=== PATIENT | male | born 1950 | race Caucasian/White ===

== ENCOUNTER → 2016-11-21 | Outpatient (CLI) | payer MEDICARE, OTHER ==
--- NOTE | 2016-11-21 11:28 | REP ---
DUPLEX CAROTID SONOGRAPHY: HISTORY: Carotid stenosis. COMPARISON: Carotid angiography from December 2011 was read as showing 30% right internal carotid artery narrowing and 50% left internal carotid artery narrowing. FINDINGS: Antegrade flow is observed in both vertebral arteries. RIGHT CAROTID: The right common carotid artery shows soft plaquing and intimal thickening. Moderate mixed plaquing is seen in the bulb and proximal ICA on the right side on two-dimensional scanning. Flow velocities by Doppler are elevated in the proximal ICA and to an even greater extent of the proximal ECA. Velocity Chart Right Carotid: PSV EDV Right CCA 91 cm/s Right ICA 179 cm/s 49 cm/s Right ECA 271 cm/s Right ICA/CCA ratio elevated 2.0. IMPRESSION: 50-79% category narrowing in the right ICA by Doppler velocity criteria. LEFT CAROTID: Left common carotid artery shows some mixed plaquing. Moderate mixed plaquing is seen in the bulb, proximal ICA and proximal ECA on two-dimensional scanning. Color flow and spectral Doppler interrogation demonstrate elevated systolic velocities in the proximal ICA and proximal ECA on the left side. Velocity Chart Left Carotid: PSV EDV Left CCA 97 cm/s Left ICA 167 cm/s 47 cm/s Left ECA 314 cm/s Left ICA/CCA ratio somewhat elevated 1.7. IMPRESSION: 50-79% category narrowing in the left ICA by Doppler velocity criteria. Signed by Mp Camargo MD 11/21/2016 03:51 P
--- NOTE | 2016-11-26 17:07 | REP ---
Clinical: Abdominal aortic aneurysm. Technique: Real time davis scale and color Doppler evaluation using curved array transducer. Findings: Evaluation of the aorta is limited due to interposed bowel gas and visualized portions demonstrate diffuse atheromatous plaquing. The proximal aorta just below the diaphragm and above the level of the main renal arteries measures 2.7 cm diameter. The mid aorta below the level of the renal arteries measures 4.9 x 5.6 cm and increases to the distal aorta above the level of the bifurcation which measures 5.8 x 5.0 cm. A stent is identified extending into the right common iliac artery. Abdominal aortic aneurysm measures approximately 9.4 cm in length and its relationship to the renal arteries cannot be evaluated due to interposed bowel gas and terminates just above the bifurcation to common iliac arteries. The right common iliac artery measures 1.2 cm diameter while the left common iliac artery measures 1.1 cm diameter. Doppler interrogation demonstrates a biphasic wave pattern through the right external iliac artery with PSV at 122 cm/sec and a triphasic wave pattern through the right common femoral artery with a PSV at 144 cm/sec. Doppler interrogation demonstrates a biphasic wave pattern through the left external iliac artery with PSV at 139 cm/sec and biphasic wave pattern through the left common femoral artery with a PSV at 140 cm/sec. Impression: Abdominal aortic aneurysm incompletely evaluated due to interposed bowel gas measuring roughly 9.4 cm in craniocaudal length and 5.8 x 5.0 cm maximal diameter tapering to the bifurcation. Signed by Abdi Leon MD 11/26/2016 04:59 P
== END ==
LOC: M RAD 08:42
PROVIDERS: ATTEND Surgery
DX: I71.4 Abdominal aortic aneurysm, without rupture (principal); I65.23 Occlusion and stenosis of bilateral carotid arteries

== ENCOUNTER → 2018-03-19 | Outpatient (CLI) | payer MEDICARE, OTHER ==
--- NOTE | 2018-03-19 10:43 | REP ---
CT ABDOMEN AND PELVIS WITHOUT IV OR ORAL CONTRAST: HISTORY: Abdominal aortic aneurysm without rupture. COMPARISON STUDY: January 05, 2017. CT FINDINGS: In the interval since the January 05, 2017 prior study, the patient has undergone aortobiiliac stent graft placement. The abdominal aortic aneurysm measures 5.1 cm in greatest anteroposterior dimension, previously 5.5 cm. No dawn-aneurysmal disease is seen. There is a suprarenal stent graft component as well with a ring of increased attenuation graft material at the junction between the suprarenal and the infrarenal stent graft components. There is left colonic diverticulosis. There is a tiny calcific density in the dependent portion the gallbladder consistent with cholelithiasis. No other significant abnormality is seen. IMPRESSION: Status post aortobiiliac stent graft repair for abdominal aortic aneurysm. The [place] aorta has decreased slightly in caliber since the pre-procedure study. Electronically Signed by Mp Camargo MD 03/19/2018 10:59 A
--- NOTE | 2018-03-19 13:36 | REP ---
Abdominal aortic sonography: History: Abdominal aortic aneurysm without rupture. Comparison CT study March 19, 2018 and January 05, 2017. Findings: The abdominal aorta measures 2.4 cm in AP by 2.6 cm transverse proximally at the level of the diaphragmatic hiatus. At the level of main renal artery origins. There is bowel gas obscuring the abdominal aorta. At mid aortic level the dimensions are 3.0 x 3.9 cm in AP by transverse dimension respectively. The aortic aneurysm measures 4.8 x 4.5 cm in AP by transverse dimension today. Previous dimensions were 5.8 x 5.0 cm. The right and left common iliac arteries are 1.1 and 1.5 cm in AP dimension respectively. 8.6 cm length of aorta is aneurysmally dilated. The patient is status post aortobiiliac stent graft repair. Doppler flow velocity in the abdominal aorta, 77 cm/sec and that in the right common iliac artery is 67 cm/sec. Flow velocity in the left common iliac artery is 77 cm. Impression: Aortobiiliac stent graft repair of abdominal aortic aneurysm. AP dimension of the abdominal aortic aneurysm is decreased somewhat to 4.8 cm. Electronically Signed by Mp Camargo MD 03/19/2018 07:27 P
== END ==
LOC: M RAD 08:33
PROVIDERS: ATTEND Surgery
DX: I71.4 Abdominal aortic aneurysm, without rupture (principal)

== ENCOUNTER → 2018-06-29 | Outpatient (CLI) | payer MEDICARE, OTHER ==
--- NOTE | 2018-07-03 10:37 | SLEEPCENT ---
DATE OF PROCEDURE: 06/29/2018 ORDERING PROVIDER: Dr. Gilmore Nocturnal polysomnography was performed for evaluation of sleep physiology in this patient with history of excessive somnolence and nonrestorative sleep who has comorbidities of hypertension, coronary artery disease, as well as acid reflux disease. 8 hours and 20 minutes of data were reviewed. There were 437 minutes of sleep identified. Sleep latency was mildly prolonged at 18 minutes. Rapid eye movement (REM) latency more so prolonged at 281 minutes. Sleep architecture showed poor progression. Three REM cycles were noted late in the study. Overall sleep efficiency was 88.6%. The electrocardiogram showed a sinus rhythm with an average heart rate 55 beats per minute. Electroencephalogram (EEG) showed normal waveforms for awake and sleep. There were 333 respiratory events identified of 10 seconds in duration or greater for an apnea-hypopnea index of 45.7. The events were both central and obstructive. 156 of these 333 events were mixed and central. Events were not exclusive to sleep stage nor body posture. Arousals from respiratory events occurred 29.1 times per hour, and oxygen desaturations were seen in the low 80s. There was minimal limb activity. Limb movement arousal index was borderline at 5.4. IMPRESSION: Complex obstructive sleep apnea syndrome (G47.31, G4 7.33). Apnea-hypopnea index 45.7. RECOMMENDATIONS: The patient should be encouraged to return to the sleep disorder center at his earliest convenience for pressure therapy. Given the occurrence of central and mixed apneas, use of bilevel device and backup rate may be necessary.
== END ==
LOC: M SLEEP 19:20
PROVIDERS: ATTEND Internal Medicine Pulmonary Disease
DX: G47.33 Obstructive sleep apnea (adult) (pediatric) (principal)

== ENCOUNTER → 2018-07-23 | Outpatient (CLI) | payer MEDICARE, OTHER ==
--- NOTE | 2018-07-25 09:13 | SLEEPCENT ---
DATE OF PROCEDURE: 07/23/2018 ORDERED BY: Dr. Gilmore Nocturnal polysomnography was performed for the titration of pressure therapy in this patient with complex obstructive sleep apnea syndrome and apnea-hypopnea index of 45.7. For testing, the patient was fit with a [employer] Quattro full face mask of small size and 4 cm of water pressure were applied to the circuit and the lights were extinguished. 7 hours and 29 minutes of data were reviewed. There were 384 minutes of sleep identified. Sleep latency was normal at 11 minutes. The patient did not achieve rapid eye movement (REM) sleep. Sleep architecture remained fragmented with poor progression. Overall sleep efficiency was 86.5%. The patient's electrocardiogram showed small complexes. There appeared to be a sinus rhythm with an average heart rate of 50 beats per minute. Electroencephalogram (EEG) showed coarsening in background and otherwise normal waveforms for awake and sleep. Persistence of respiratory events prompted an increase in C-PAP pressure and despite optimal mask fit and minimal air leak the patient required a change to a bilevel device. Progressive pressure increases were performed. However, an optimal pressure is difficult to identify on this testing. There was some emergence of central apnea, prompting a backup rate. Best sleep appears to have occurred at a bilevel pressure therapy inspiratory 16 over expiratory of 12, though there were persistence of some respiratory events that were for the most part hypopneic and not associated with severe oxygen desaturation below 93%. Additionally, limb activity was marked in the EMG channels. The patient's limb movement arousal index was up from the diagnostic night at 11.6. IMPRESSION: 1. Complex obstructive sleep apnea syndrome (G47.31, G47.33). 2. Possible periodic limb movement disorder. RECOMMENDATIONS: Though this was an incomplete titration, best sleep was seen on a bilevel device with inspiratory 16 over expiratory of 12 and institution of this pressure therapy should at least improve the quality of the patient's sleep. If symptoms persist, a full night retitration on bilevel therapy and possibly the addition of a backup free to address central events may be necessary. Pending optimal pressure therapy, interventions to reduce the frequency of arousals from limb activity may also be helpful.
== END ==
LOC: M SLEEP 19:14
PROVIDERS: ATTEND Internal Medicine Pulmonary Disease
DX: G47.33 Obstructive sleep apnea (adult) (pediatric) (principal); G47.31 Primary central sleep apnea

== ENCOUNTER → 2019-05-23 | Outpatient (CLI) | payer MEDICARE, BC ==
--- NOTE | 2019-05-23 13:53 | REP ---
CT of the abdomen and pelvis for follow-up of abdominal aortic aneurysm: Comparison is 03/19/2018. The patient has a known infrarenal aortobi-iliac aortic stent. In addition, the patient has a known suprarenal aortic stent. This is unchanged. The [place] abdominal aorta maximally measures 4.4 cm in AP diameter. Previously it measured 5.1 cm. There is no periaortic hematoma. There is dependent atelectasis in the visualized lung [place]. The unenhanced hepatic parenchyma is homogeneous. There is a tiny barely visible gallbladder calculus seen on the coronal images today, unchanged. The pancreas and spleen are unremarkable. The adrenals and kidneys are unremarkable. The bowel and mesentery are unremarkable. Pelvis: The pelvic bowel loops are unremarkable except for occasional diverticula without diverticulitis. The bladder is unremarkable. There is no adenopathy or ascites. Impression: There is an aortic stent with suprarenal and infrarenal components as described. The [place] aorta has decreased in size measuring 4.4 cm AP diameter today, previously 5.1 cm. There is no periaortic hematoma. There is a tiny gallbladder calculus, unchanged. There is diverticulosis without diverticulitis, unchanged. Electronically Signed by Liborio Doe MD 05/23/2019 01:44 P
== END ==
LOC: M RAD 12:57
PROVIDERS: ATTEND Surgery
DX: I71.4 Abdominal aortic aneurysm, without rupture (principal); Z95.828 Presence of other vascular implants and grafts; K57.90 Diverticulosis of intestine, part unspecified, without perforation or abscess without bleeding; K80.20 Calculus of gallbladder without cholecystitis without obstruction

== ENCOUNTER → 2020-07-29 | Outpatient (CLI) | payer MEDICARE, BC ==
--- NOTE | 2020-07-29 10:14 | REP ---
INDICATION: AAA. COMPARISON: 03/19/2018. TECHNIQUE: Real-time sonographic evaluation of the abdominal aorta performed. FINDINGS: Distal abdominal aortic aneurysm is probably mildly decreased in size compared to the prior study. Aorto bi-iliac stent graft is again noted with no sonographic evidence of leak. The aneurysm currently measures 4.1 x 5.3 cm, previously 4.8 x 5.5 cm. Maximum AP diameter of abdominal aorta: Proximal (at diaphragm):2.8 cm. At renal artery level: 3.0 cm Mid abdominal aorta:3.6 cm. Distal abdominal aorta (prebifurcation): 4.1 cm. Maximum AP diameter common iliac arteries: Right: 17 mm. Left: 16mm. IMPRESSION: Probable mild decrease in size of distal abdominal aortic aneurysm measuring 4.1 x 5.3 cm. Aorto bi-iliac stent graft in place with no definite leakage sonographically. <Electronically signed by Liborio Manley > 07/29/20 [id number]
== END ==
LOC: M RAD 09:24
PROVIDERS: ATTEND Surgery
DX: I71.4 Abdominal aortic aneurysm, without rupture (principal); Z95.828 Presence of other vascular implants and grafts

== ENCOUNTER 2022-09-02 11:41 | Emergency (ER) | payer MEDICARE, BC ==
[~2022-09-02] VITALS: Ht 167.6 cm; Wt 72.8 kg
[2022-09-02] MEDS ORDERED: CLOP75TA2 (12:01)
[2022-09-02] MEDS ORDERED: ROSU20TA61 (12:01)
[2022-09-02] MEDS ORDERED: AMLO1TAB24 (12:01)
[2022-09-02] MEDS ORDERED: CHLO125TA (12:01)
[2022-09-02] MEDS ORDERED: SPIR-10 (12:01)
[2022-09-02] MEDS ORDERED: CARV6.25 (12:01)
[2022-09-02] MEDS ORDERED: LAMO100T3 (12:01)
[2022-09-02] MEDS ORDERED: TAMS1CAP17 (12:01)
[2022-09-02] MEDS ORDERED: ZOLO100T (12:01)
[2022-09-02] MEDS ORDERED: POTA10CA60 (12:01)
[2022-09-02] MEDS ORDERED: methylPREDNISolone 125MG 2ML VIAL IV ONE (12:20)
[2022-09-02 12:26] LABS: BASO % 0.5 % (0.0-1.0); EOS # 0.3 10^3/uL (0.0-0.5); EOS % 3.9 % (0.0-3.0); HEMOGLOBIN 16.7 g/dl (13.5-17.5); LYMPH # 1.8 10^3/uL (1.5-5.0); LYMPH % 23.8 % (24.0-44.0); MEAN CORPUSCULAR HEMOGLOBIN 31.9 pg (27.0-33.0); MEAN CORPUSCULAR HGB CONC 34.8 g/dl (32.0-36.5); MEAN CORPUSCULAR VOLUME 91.6 fl (80.0-96.0); MONO # 0.7 10^3/uL (0.0-0.8); NEUTROPHILS # 4.7 10^3/uL (1.5-8.5); NEUTROPHILS % 62.5 % (36.0-66.0); PLATELET COUNT, AUTOMATED 207 10^3/uL (150-450); RED BLOOD COUNT 5.24 10^6/uL (4.30-6.10); WHITE BLOOD COUNT 7.5 10^3/uL (4.0-10.0)
[2022-09-02 12:37] LABS: INR 0.91; PROTHROMBIN TIME 12.4 SECONDS (12.5-14.5)
[2022-09-02 12:38] LABS: PARTIAL THROMBOPLASTIN TIME 31.3 SECONDS (24.8-34.2)
[2022-09-02 12:53] LABS: ALBUMIN 3.9 G/DL (3.2-5.2); BILIRUBIN,DIRECT 0.1 MG/DL (<0.4); BILIRUBIN,TOTAL 0.5 MG/DL (0.3-1.2)
[2022-09-02 12:54] LABS: FREE T4 0.87 NG/DL (0.89-1.76); THYROID STIMULATING HORMONE 1.128 uIU/ML (0.55-4.78)
[2022-09-02 13:07] LABS: MB/CK RELATIVE INDEX 0.8 (< OR =4)
[2022-09-02] MEDS ORDERED: ISOVUE-370 76% 100ML VIAL As Ordered ONE (13:10)
[2022-09-02] MEDS ORDERED: diphenhydrAMINE 50MG/ML VIAL IV ONE (13:45)
[2022-09-02 14:21] LABS: CK-MB VALUE MASS 5.2 NG/ML (<3.6)
[2022-09-02 14:28] LABS: MB/CK RELATIVE INDEX 4.72 (< OR =4)
[2022-09-02 15:45] VITALS: BP 165/77; TEMP 98.2; O2SAT 90
== END 2022-09-02 16:09 | disposition home or self-care (01) ==
LOC: M ED 11:41
DX: R07.89 Other chest pain (principal); B34.8 Other viral infections of unspecified site; I25.2 Old myocardial infarction; Z88.5 Allergy status to narcotic agent; Z88.8 Allergy status to other drugs, medicaments and biological substances; Z91.041 Radiographic dye allergy status; Z91.030 Bee allergy status
CPT/HCPCS: 71045; 71275; 80047; 80076; 82550; 82553; 83690; 83880; 84439; 84443; 84484; 85025; 85610; 85730; 87040; 87486; 87581; 87633; 87798; 93005; 93041; 94760; 96374; 96375; 99285; J1200; J2930; Q9967

== ENCOUNTER → 2024-01-03 | Outpatient (CLI) | payer MEDICARE, BC ==
[~2024-01-03] MED LIST: AMLO1TAB24; CARV6.25; CHLO125TA; CLOP75TA2; LAMO100T3; POTA10CA70; ROSU20TA86; SPIR-10; TAMS1CAP17; ZOLO100T
== END ==
LOC: M PLAIMG 09:28
PROVIDERS: ATTEND Registered Nurse
DX: I08.3 Combined rheumatic disorders of mitral, aortic and tricuspid valves (principal); I50.32 Chronic diastolic (congestive) heart failure; I27.20 Pulmonary hypertension, unspecified

== ENCOUNTER → 2024-01-12 | Outpatient (CLI) | payer MEDICARE | LOC: M RAD 13:43 | PROVIDERS: ATTEND Registered Nurse | DX: I65.23 Occlusion and stenosis of bilateral carotid arteries (principal) ==

== ENCOUNTER → 2024-02-05 | Outpatient (CLI) | payer MEDICARE, BC ==
[2024-02-05 11:17] LABS: BASO # 0.1 10^3/uL (0.0-0.2); BASO % 0.5 % (0.0-1.0); EOS # 0.2 10^3/uL (0.0-0.5); EOS % 2.2 % (0.0-3.0); HEMATOCRIT 45.8 % (42.0-52.0); HEMOGLOBIN 16.1 g/dl (13.5-17.5); LYMPH # 2.7 10^3/uL (1.5-5.0); LYMPH % 29.3 % (24.0-44.0); MEAN CORPUSCULAR HEMOGLOBIN 32.1 pg (27.0-33.0); MEAN CORPUSCULAR HGB CONC 35.2 g/dl (32.0-36.5); MEAN CORPUSCULAR VOLUME 91.2 fl (80.0-96.0); MONO # 0.8 10^3/uL (0.0-0.8); MONO % 8.5 % (2.0-8.0); NEUTROPHILS # 5.5 10^3/uL (1.5-8.5); NEUTROPHILS % 59.3 % (36.0-66.0); PLATELET COUNT, AUTOMATED 254 10^3/uL (150-450); RED BLOOD COUNT 5.02 10^6/uL (4.30-6.10); WHITE BLOOD COUNT 9.4 10^3/uL (4.0-10.0)
[2024-02-05 11:47] LABS: ALBUMIN 3.6 G/DL (3.2-5.2); ALKALINE PHOSPHATASE 95 U/L (40-129); ALT/SGPT 25 U/L (7.0-40); AST/SGOT 17 U/L (<34); BILIRUBIN,TOTAL 0.5 MG/DL (0.3-1.2); BLOOD UREA NITROGEN 16 MG/DL (9-23); CALCIUM LEVEL 9.7 MG/DL (8.3-10.6); CARBON DIOXIDE LEVEL 30 MMOL/L (20-31); CHLORIDE LEVEL 102 MMOL/L (98-107); CREATININE FOR GFR 1.07 MG/DL (0.70-1.30); GLOMERULAR FILTRATION RATE > 60.0 (>42); GLUCOSE, FASTING 107 MG/DL (74-106); POTASSIUM SERUM 4.2 MMOL/L (3.5-5.1); SODIUM LEVEL 136 MMOL/L (136-145); TOTAL PROTEIN 6.9 G/DL (5.7-8.2)
== END ==
LOC: M LAB 10:21
PROVIDERS: ATTEND Registered Nurse
DX: I25.10 Atherosclerotic heart disease of native coronary artery without angina pectoris (principal)